=== PATIENT | female | born 1965 | race Caucasian/White ===

== ENCOUNTER → 2019-11-28 00:01 | Outpatient (BNVA) | payer SELFPAY | PROVIDERS: Family Provider Nurse Practitioner Family; PCP Nurse Practitioner Family; Visit Provider Nurse Practitioner Family | DX: S62.633A Displaced fracture of distal phalanx of left middle finger, initial encounter for closed fracture (principal); X58.XXXA Exposure to other specified factors, initial encounter | CPT/HCPCS: 73130 ==

== ENCOUNTER → 2020-04-11 12:03 | Outpatient (BNVA) | payer SELFPAY | PROVIDERS: Family Provider Nurse Practitioner Family; PCP Nurse Practitioner Family; Visit Provider Family Medicine | DX: I10 Essential (primary) hypertension (principal); M19.049 Primary osteoarthritis, unspecified hand; J30.2 Other seasonal allergic rhinitis | CPT/HCPCS: 80053; 80061 ==

== ENCOUNTER → 2021-03-23 11:43 | Outpatient (BNVA) | payer SELFPAY | PROVIDERS: Family Provider Nurse Practitioner Family; PCP Nurse Practitioner Family; Visit Provider Family Medicine | DX: I10 Essential (primary) hypertension (principal); B35.1 Tinea unguium; R91.1 Solitary pulmonary nodule; M62.830 Muscle spasm of back; J30.2 Other seasonal allergic rhinitis; M19.011 Primary osteoarthritis, right shoulder; L85.3 Xerosis cutis; M19.049 Primary osteoarthritis, unspecified hand; S46.811A Strain of other muscles, fascia and tendons at shoulder and upper arm level, right arm, initial encounter; X58.XXXA Exposure to other specified factors, initial encounter | CPT/HCPCS: 80053; 80061 ==

== ENCOUNTER → 2021-04-25 14:37 | Outpatient (BNVA) | payer SELFPAY | PROVIDERS: Family Provider Nurse Practitioner Family; PCP Nurse Practitioner Family; Visit Provider Family Medicine | DX: R74.8 Abnormal levels of other serum enzymes (principal) | CPT/HCPCS: 80053; 86706; 86803; 87340; 87522; 87806 ==

== ENCOUNTER → 2021-09-12 12:27 | Outpatient (BNVA) | payer SELFPAY | PROVIDERS: Family Provider Nurse Practitioner Family; PCP Nurse Practitioner Family; Visit Provider Family Medicine | DX: L98.9 Disorder of the skin and subcutaneous tissue, unspecified (principal) | CPT/HCPCS: 88304 ==

== ENCOUNTER → 2022-02-26 11:14 | Outpatient (BNVA) | payer SELFPAY | PROVIDERS: Family Provider Nurse Practitioner Family; PCP Family Medicine; Visit Provider Nurse Practitioner Family | DX: R68.89 Other general symptoms and signs (principal) | CPT/HCPCS: 87804 ==

== ENCOUNTER → 2022-07-03 14:08 | Outpatient (BNVA) | payer SELFPAY | PROVIDERS: Family Provider Nurse Practitioner Family; PCP Family Medicine; Visit Provider Family Medicine | DX: I10 Essential (primary) hypertension (principal); Z13.220 Encounter for screening for lipoid disorders; Z13.6 Encounter for screening for cardiovascular disorders; B18.2 Chronic viral hepatitis C; L57.0 Actinic keratosis; J30.2 Other seasonal allergic rhinitis; M19.011 Primary osteoarthritis, right shoulder; R74.8 Abnormal levels of other serum enzymes | CPT/HCPCS: 80053; 80061; 83735 ==

== ENCOUNTER 2022-09-04 19:53 | Emergency (ER) | payer SELFPAY ==
[2022-09-04 19:59] VITALS: PULSE 75; RESP 18; TEMP 36.8; O2SAT 98; BMI 25.9
[2022-09-04 20:06] VITALS: BP 156/87
--- NOTE | 2022-09-04 20:15 | ECG_ITS ---
[facility] Test Date: 2022-09-04 Pat Name: Kriss Mccann Department: Room: Gender: Female Riveter Hand: : 1965 Requested By: Mary Ellen Suresh Order Number: [id number] Alysa MD: [place] River M.D. Measurements Intervals [place] Rate: 66 P: 48 AR: 144 QRS: 66 QRSD: 82 T: 60 QT: 391 QTc: 411 Interpretive Statements SINUS RHYTHM No previous ECG available for comparison Electronically Signed On 09-05-2022 8:24:26 CDT by Quincy River M.D. [id number]
[2022-09-04 20:23] LABS: Basophils % 0.6 %; Eosinophils # 0.1 10^3/uL (0.0-0.8); Hematocrit 44.7 % (37.0-47.0); Hemoglobin 15.9 g/dL (11.5-15.3); Lymphocytes # 2.9 10^3/uL (0.8-4.8); Mean Corpuscular HGB Conc 35.6 g/dL (30.0-36.0); Mean Corpuscular Hemoglobin 33.3 pg (28.0-34.0); Mean Corpuscular Volume 93.5 fl (81-99); Mean Platelet Volume 11.8 fL (7.4-10.4); Monocytes # 0.7 10^3/uL (0.2-0.9); Monocytes % 10.1 %; Neutrophils # 3.28 10^3/uL (1.8-7.7); Neutrophils % 45.9 %; Nucleated Red Blood Cells % 0 %; Platelet Count 84 10^3/cmm (130-400); Red Blood Count 4.78 10^6/uL (4.1-5.3); Red Cell Distribution Width 13.2 % (12.1-15.1); White Blood Count 7.1 10^3/uL (4.0-10.0)
[2022-09-04] MEDS: pantoprazole 40 mg SDV 80 MG IVP (20:30)
[2022-09-04] MEDS: sodium chloride 0.9% 500 ML IV (20:31)
[2022-09-04] MEDS: ondansetron 2 mg/ML SDV 2 mL 4 MG IVP (20:31)
[2022-09-04 20:35] LABS: Alanine Aminotransferase 53 U/L (0-33); Albumin Level 3.6 g/dL (3.5-5.2); Alkaline Phosphatase 148 U/L (35-105); Aspartate Amino Transferase 75 U/L (0-32); Blood Urea Nitrogen 15 mg/dL (6-20); Calcium 9.2 mg/dL (8.5-10.5); Carbon Dioxide 27 mmol/L (22-29); Chloride 102 mmol/L (98-107); Glomerular Filtration Rate 103.8 mL/min (90-130); Glucose 89 mg/dL (65-115); Lipase 18 U/L (13-60); Osmolality Calculated 288 mOsm/kg (285-295); Sodium 139 mmol/L (136-145); Total Bilirubin 0.4 mg/dL (0.15-1.2); Total Protein 7.6 g/dL (6.6-8.7)
[2022-09-04 20:42] LABS: Add Urine Microscopic? NO; Charge for UA Resulting for Rev
--- NOTE | 2022-09-04 20:42 | W.ED.GENADLT ---
HPI - General Adult General: Chief complaint: Nausea/Vomiting/Diarrhea Stated complaint: VOMITING BLOOD Time Seen by Provider: 09/04/22 20:15 History of Present Illness: Patient is a 57-year-old female with a history of chronic aspirin use who presents the emergency room with concerns of spitting blood. Patient tells me that this all started around 4 hours ago when she was at home. Initially patient reports coughing up blood then reports vomiting blood and now reports sensation of blood dripping in the back of her throat and and throwing up blood. Patient denies any anticoagulation history. Patient denies any melena/hematochezia or abdominal pain. Patient's no prior history of GI bleed. Denies nausea/vomiting, fever/chill, chest pain, shortness of breath, abdominal pain, dysuria/hematuria/polyuria, or diarrhea. Onset:4 hrs ago Duration:4 hrs Location:home Severity:moderate Associated symptoms: Deny chest pain, dyspnea, nausea, rash, palpitations or vomiting Review of Systems Const: Denies: fever(s) or chills Eyes: Denies: change in vision ENMT: Reports: other (+sensation of postnasal drip); Denies: mouth pain Card: Denies: chest pain or palpitations Resp: Denies: dyspnea or non-productive cough GI: Denies: abdominal pain, nausea, vomiting or diarrhea : Denies: dysuria Musc: Denies: extremity pain Skin/Breast: Denies: rash or new lesions Neuro: Denies: weakness in extremities Psych: Reports: other (Normal mood) Levi/Lymph: Denies: easy bruising PFSH ED PFSH: Medical History delivery delivered 2 Elevated liver enzymes Hand arthritis Hypertension Nodule of lower lobe of right lung Pruritic disorder Family History Father Heart attack Social History Smoking and tobacco status: current every day smoker cigarettes Packs smoked per day: 0.5 Years cigarettes smoked: 40 Quit status (tobacco): has tried quititng Second hand smoke exposure: Yes Alcohol intake: former Lives independently: Yes Household members: none Housing: House Marital status: / Number of children: 2 Number of grandchildren: 2 Current occupation: grain elevator worker Pets and animals: Yes Physical Exam Const: COMMON NORMALS: alert HENMT: COMMON NORMALS: atraumatic HEAD & SCALP: atraumatic MOUTH: moist mucous membranes not abnormal OTHER: + No signs of erythema, trauma, injury, or bleeding in the posterior oropharynx Eye: COMMON NORMALS: EOMs intact bilaterally and conjunctivae normal CONJUNCTIVA: Yes conjunctivae normal Neck/C-Spine: COMMON NORMALS: full ROM and supple Resp: COMMON NORMALS: normal respiratory effort and clear to auscultation bilaterally AUSCULTATION: clear to auscultation bilaterally Cardio: COMMON NORMALS: regular rate RATE: regular rate GI: COMMON NORMALS: Soft to palpation and non-tender PALPATION: Yes Soft to palpation Extremity: COMMON NORMALS: full ROM Neuro: SENSORIUM/ORIENTATION: Yes alert MOTOR EXAM: No Abnormal motor strength present and Other motor observations present (no focal motor deficits) Psych: COMMON NORMALS: speech normal SPEECH: Yes normal speech MOOD & AFFECT: Yes euthymic mood Course Vital Signs: Vital signs: Vital Signs Temperature 98.3 F 09/04/22 19:59 Pulse Rate 65 09/04/22 21:06 Respiratory Rate 16 09/04/22 21:06 Blood Pressure 131/76 09/04/22 21:06 Pulse Oximetry 96 09/04/22 21:06 [facility] - General Adult Medical Decision Making Patient is a 57-year-old female with a history of chronic aspirin use who presents the emergency room with concerns of spitting blood. Patient is hemodynamically stable. Patient has had intermittent phlegm with blood. Posterior pharyngeal exam did not show any signs of oral airway compromise. There is no signs of active extravasation or bleeding. Straight chest appears to be clear.) Time it is unclear what is the source of this mild ooze suspect that it may be from posterior oropharynx. Patient is hemodynamically stable. At present time, I have instructed patient to no longer take aspirin 325 mg twice daily. Patient instructed follow-up and reassess tomorrow to repeat blood work to ensure that her hemoglobin does not further decrease. Patient verbalized understanding of everything discussed. The present, not suspect acute GI bleed or massive hemopytosis the fact patient continues to be hemodynamically stable, is phonating okay and has reassuring hemoglobin today. Disposition: Discharge. Patient counseled regarding diagnostic impression, treatment plan. Patient given ED strict return precautions to return for continuation, worsening, or development of new symptoms. Instructed to f/u w/ PCP regarding symptoms today. Patient verbalized understanding. Lab Data : 09/04/22 20:02 09/04/22 20:02 Radiology Impressions Chest X-Ray 09/04/22 20:48 IMPRESSION: No acute findings. Laboratory Results WBC 7.1 10^3/uL (4.0-10.0) 09/04/22 20: RBC 4.78 10^6/uL (4.1-5.3) 09/04/22 20: Hgb 15.9 g/dL (11.5-15.3) H 09/04/22 20: Hct 44.7 % (37.0-47.0) 09/04/22 20: MCV 93.5 fl (81-99) 09/04/22 20: MCH 33.3 pg (28.0-34.0) 09/04/22 20: MCHC 35.6 g/dL (30.0-36.0) 09/04/22 20: RDW 13.2 % (12.1-15.1) 09/04/22 20: Plt Count 84 10^3/cmm (130-400) L 09/04/22 20: MPV 11.8 fL (7.4-10.4) H 09/04/22 20: Neut % (Auto) 45.9 % 09/04/22 20: Lymph % (Auto) 41.0 % 09/04/22 20: Sandoval % (Auto) 10.1 % 09/04/22 20: Eos % (Auto) 2.0 % 09/04/22 20: Baso % (Auto) 0.6 % 09/04/22 20: Neut # (Auto) 3.28 10^3/uL (1.8-7.7) 09/04/22 20: Lymph # (Auto) 2.9 10^3/uL (0.8-4.8) 09/04/22 20: Sandoval # (Auto) 0.7 10^3/uL (0.2-0.9) 09/04/22 20:02 Eos # (Auto) 0.1 10^3/uL (0.0-0.8) 09/04/22 20:02 Baso # (Auto) 0.0 10^3/uL (0.0-0.1) 09/04/22 20:02 Nucleated RBC % (auto) 0 % 09/04/22 20: Nucleated RBCs # 0.0 /100WBC 09/04/22 20:02 Sodium 139 mmol/L (136-145) 09/04/22 20: Potassium 4.0 mmol/L (3.5-5.1) 09/04/22 20: Chloride 102 mmol/L (98-107) 09/04/22 20: Carbon Dioxide 27 mmol/L (22-29) 09/04/22 20: Anion Gap 14.0 (5-19) 09/04/22 20: BUN 15 mg/dL (6-20) 09/04/22 20: Creatinine 0.6 mg/dL (0.5-0.9) 09/04/22 20: GFR Calculation 103.8 mL/min (90-130) 09/04/22 20: Glucose 89 mg/dL (65-115) 09/04/22 20: Calculated Osmolality 288 mOsm/kg (285-295) 09/04/22 20: Calcium 9.2 mg/dL (8.5-10.5) 09/04/22 20: Total Bilirubin 0.4 mg/dL (0.15-1.2) 09/04/22 20: AST 75 U/L (0-32) H 09/04/22 20: ALT 53 U/L (0-33) H 09/04/22 20:02 Alkaline Phosphatase 148 U/L (35-105) H 09/04/22 20:02 Total Protein 7.6 g/dL (6.6-8.7) 09/04/22 20: Albumin 3.6 g/dL (3.5-5.2) 09/04/22 20: Globulin 4.0 g/dL (1.3-4.6) 09/04/22 20: Lipase 18 U/L (13-60) 09/04/22 20: Urine Color Yellow (Yellow) 09/04/22 20:36 Urine Appearance Clear (CLEAR) 09/04/22 20:36 Urine pH 7 (5-7) 09/04/22 20:36 Ur Specific [place] 1.010 (1.005-1.030) 09/04/22 20:36 Urine Protein Neg (Negative) 09/04/22 20:36 Urine Glucose (UA) Norm (Normal) 09/04/22 20:36 Urine Ketones Negative (Negative) 09/04/22 20:36 Urine Blood Neg (Negative) 09/04/22 20:36 Urine Nitrate Negative (Negative) 09/04/22 20:36 Urine Bilirubin Neg (Negative) 09/04/22 20:36 Urine Urobilinogen Norm mg/dL (Negative) 09/04/22 20:36 Ur Leukocyte Esterase Negative (Negative) 09/04/22 20:36 Imaging Data Other Imaging: Radiologist's impression: [place] [address] XRay Report Signed Patient: Kriss Mccann Unit #: [id number] : 1965 Age/Sex: 57 / F ADM Date: 09/04/22 Loc: ER Room/Bed: Attending Dr: Ordering Provider/Ordering MD: Mary Ellen Suresh MD Date of Service: 09/04/22 Procedure(s): XR chest 1V portable [id number] Accession Number(s): [id number] Report Number: [id number] PROCEDURE INFORMATION: Exam: XR Chest Exam date and time: 09/04/2022 8:53 PM Age: 57 years old Clinical indication: Other: Coughing up blood TECHNIQUE: Imaging protocol: Radiologic exam of the chest. Views: 1 view. COMPARISON: CT abdomen pelvis w con* [id number] 10/11/2015 12:17 PM FINDINGS: Lungs: Unremarkable. No consolidation. Pleural spaces: Unremarkable. No pleural effusion. No pneumothorax. Heart/Mediastinum: Unremarkable. No cardiomegaly. Bones/joints: Unremarkable. XR/XR chest 1V portable [id number] IMPRESSION: No acute findings. ? Dictated By: Rashaad Au DO Signed By: Rashaad Au DO Signed Date/Time: 09/04/222113 DD/ 52 Discharge Plan Discharge Patient Disposition: Home Clinical Impression: Blood-streaked sputum Condition: Stable Prescriptions: No Action cyclobenzaprine 5 mg tablet 10 mg PO TID MDD 6 tabs PRN (Reason: muscle spasm) Qty: 90 3RF Rx Instructions: 1 or 2 tabs as needed hydroxyzine HCl 10 mg tablet 20 mg PO .at bedtime 30 Days Qty: 30 2RF hydrochlorothiazide 25 mg tablet 25 mg PO DAILY 90 Days Qty: 90 3RF fluticasone propionate [Flonase Allergy Relief] 50 mcg/actuation spray,suspension 1 spray intranasal DAILY Qty: 16 11RF Rx Instructions: administer into each nostril sofosbuvir-velpatasvir [Epclusa] 400-100 mg tablet 1 tab PO DAILY 28 Days Qty: 28 2RF omeprazole 20 mg capsule,delayed release(DR/EC) 20 mg PO DAILY Qty: 30 2RF Discharge Orders: Discharge ED (Routine); Ordered 09/04/22 Ordered By: Mary Ellen Suresh Referrals: Yazmin Wray MD [Primary Care Provider] - Discharge Diet: Advance as tolerated Discharge Activity: Increase activity as tolerated Activity Restrictions/Additional Instructions: Come back if you have any new or concerning issues. Follow-up with your primary care provider for reassessment of your symptoms tomorrow. Come back to the emergency room if notice significant increase in blood in your phlegm cough or vomit. Come back if there is any new external complaints. Coding Level of Care Code ED Manager Risk Management for Eusebio Fwd Exam Comprehensive
[2022-09-04 20:44] LABS: Bilirubin Urine Neg (Negative); Blood Urine Neg (Negative); Glucose Urine UA Norm (Normal); Ketones Urine Negative (Negative); Leukocyte Esterase Urine Negative (Negative); Nitrate Urine Negative (Negative); Protein Urine Neg (Negative); Urine Appearance Clear (CLEAR); Urine Color Yellow (Yellow); Urobilinogen Urine Norm (Negative); pH Urine 7 (5-7)
--- NOTE | 2022-09-04 20:48 | XRR_ITS ---
PROCEDURE INFORMATION: Exam: XR Chest Exam date and time: 09/04/2022 8:53 PM Age: 57 years old Clinical indication: Other: Coughing up blood TECHNIQUE: Imaging protocol: Radiologic exam of the chest. Views: 1 view. COMPARISON: CT abdomen pelvis w con* [id number] 10/11/2015 12:17 PM FINDINGS: Lungs: Unremarkable. No consolidation. Pleural spaces: Unremarkable. No pleural effusion. No pneumothorax. Heart/Mediastinum: Unremarkable. No cardiomegaly. Bones/joints: Unremarkable. XR/XR chest 1V portable [id number] IMPRESSION: No acute findings.
[2022-09-04 21:06] VITALS: BP 131/76; PULSE 65; RESP 16; O2SAT 96
[2022-09-04 22:00] VITALS: BP 122/70; PULSE 74; RESP 18; O2SAT 94
[2022-09-04 22:51] VITALS: BP 118/76; PULSE 68; RESP 16; O2SAT 95
== END 2022-09-04 22:54 | disposition home or self-care (01) ==
PROVIDERS: Emergency Provider Emergency Medicine; PCP Family Medicine
DX: R04.2 Hemoptysis (principal); I10 Essential (primary) hypertension; F17.210 Nicotine dependence, cigarettes, uncomplicated
CPT/HCPCS: 71045; 80053; 81003; 83690; 85025; 93005; 96374; 96375; 99285; C9113; J2405; J7040

== ENCOUNTER → 2022-12-11 13:27 | Outpatient (BNVA) | payer SELFPAY | PROVIDERS: PCP Family Medicine; Visit Provider Family Medicine | DX: I10 Essential (primary) hypertension (principal); L29.9 Pruritus, unspecified; M19.011 Primary osteoarthritis, right shoulder; Z13.1 Encounter for screening for diabetes mellitus; E11.9 Type 2 diabetes mellitus without complications; K21.9 Gastro-esophageal reflux disease without esophagitis; R11.0 Nausea; K29.01 Acute gastritis with bleeding; B18.2 Chronic viral hepatitis C | CPT/HCPCS: 83036 ==

== ENCOUNTER → 2023-03-05 14:34 | Outpatient (BNVA) | payer OTHER, SELFPAY | PROVIDERS: PCP Family Medicine; Visit Provider Family Medicine | DX: B18.2 Chronic viral hepatitis C (principal) | CPT/HCPCS: 80053; 87522 ==

== ENCOUNTER → 2023-03-06 10:56 | Outpatient (BNVA) | payer OTHER, SELFPAY | PROVIDERS: PCP Family Medicine; Visit Provider Family Medicine | DX: M54.12 Radiculopathy, cervical region (principal) | CPT/HCPCS: 72040 ==

== ENCOUNTER 2023-04-15 06:49 | Outpatient (CLI) | payer OTHER, SELFPAY ==
--- NOTE | 2023-04-15 07:30 | USCV_ITS ---
Kriss Mccann Age: 58 Gender: F : 1965 Exam Date: 04/15/2023 07:17 Ordering Phys: Yazmin Wray MD Technologist: HIREN [place] [facility] [place] EVAL FOR STENOSIS Risk Factors: Previous Vascular Surgery: Right Brachial BP: / Left Brachial BP: / Right Left Velocity (cm/s) Spectral Plaque Velocity (cm/s) Spectral Plaque Syst/Diast Broadening Syst/Diast Broadening 104.70/18.70 Prox CCA 114.70/ 22.10 81.80/ 20.70 Mid CCA 84.90 / 23.20 82.70/ 24.30 Distal CCA 72.80 / 19.80 94.00/ 24.80 Prox ICA 73.60 / 22.30 80.80/ 26.70 Mid ICA 69.70 / 21.00 80.90/ 24.60 Distal ICA 45.00 / 16.60 89.70 ECA 62.90 0.90 ICA/CCA 0.64 Antegrade Vertebral Antegrade 52.00/ 17.90 cm/s 43.30/ 12.20 cm/s Tri Subclavian Tri 90.90 99.00 CONCLUSIONS Right ICA stenosis <50%. Left ICA stenosis <50%. Complex 7mm right thyroid nodule partially visualized. Recommend f/u thyroid ultrasound Normal antegrade Doppler flow noted in the right vertebral artery. Normal antegrade Doppler flow noted in the left vertebral artery. Clinton Raygoza MD (Electronically Signed) Final Date: 15 Apr 2023 12:48 S
== END 2023-04-15 06:50 | disposition home or self-care (01) ==
LOC: RAD 06:54
PROVIDERS: PCP Family Medicine; Visit Provider Family Medicine
DX: I65.29 Occlusion and stenosis of unspecified carotid artery (principal)
CPT/HCPCS: 93880

== ENCOUNTER 2023-04-24 13:59 | Outpatient (CLI) | payer OTHER, SELFPAY ==
--- NOTE | 2023-04-24 15:00 | US_ITS ---
WS: [id number] THYROID ULTRASOUND HISTORY: E04.1 - Nontoxic single thyroid nodule COMPARISON: None available. Right lobe: 1.8 cm x 1.5 cm x 5.1 cm (w x ap x l). Volume: 7.1 cm3. Normal size gland. Cystic mass with intramural debris or nodule superior pole measures 7 x 7 x 10 mm. The nodule within the cystic mass measures 3 x 2 x 4 mm. No increased vascularity. This may be debri s within the nodule. Otherwise the gland demonstrates very mild coarsened echotexture. Left lobe: 1.4 cm x 1.2 cm x 3.7 cm (w x ap x l). Volume: 3.1 cm3. Normal size gland with coarse echotexture. No increased vascularity. There are a few small colloid cy sts. Isthmus: 0.2 cm. US/US thyroid [id number] IMPRESSION: 1. Small cyst with mural nodule or intracystic debris in the superior pole RIG HT thyroid. Cystic nodule measures 7 x 7 x 10 mm. No increased vascularity of t he nodular component. Suggest one-year ultrasound evaluation. 2. Otherwise mild heterogeneity throughout both lobes but no solid masses.
== END 2023-04-24 14:00 | disposition home or self-care (01) ==
LOC: RAD 14:02
PROVIDERS: PCP Family Medicine; Visit Provider Family Medicine
DX: E04.1 Nontoxic single thyroid nodule (principal)
CPT/HCPCS: 76536

== ENCOUNTER → 2023-05-07 14:24 | Outpatient (BNVA) | payer OTHER, SELFPAY | PROVIDERS: PCP Family Medicine; Visit Provider Family Medicine | DX: B18.2 Chronic viral hepatitis C (principal) | CPT/HCPCS: 80053; 82977; 85025; 87806; 87902 ==

== ENCOUNTER → 2023-05-15 08:23 | Outpatient (BNVA) | payer OTHER, SELFPAY | PROVIDERS: PCP Family Medicine; Visit Provider Otolaryngology | DX: E04.1 Nontoxic single thyroid nodule (principal) | CPT/HCPCS: 36415; 84439; 84443; 84480; 84481 ==

== ENCOUNTER 2023-05-22 07:05 | Outpatient (CLI) | payer OTHER, SELFPAY ==
--- NOTE | 2023-05-22 07:15 | US_ITS ---
WS: [id number] Exam: [place] liver [id number] Date/Time of Exam: 05/22/2023 7:30 AM Reason For Exam: hep c, transaminitis Comparison 10/11/2015. Heterogeneous echotexture throughout the liver is noted and shows little change since the prior study . There was no sign of intrahepatic ductal dilatation or focal hepatic mass. The liver is not enlarge d and measures 14.13 cm at greatest dimension. There is mild thickening of the gallbladder romero whic h might be seen with chronic gallbladder disease. No sign of acute cholecystitis or cholelithiasis. T he common bile duct is not dilated and measures 4.4 mm at greatest diameter. The IVC shows phasic jaimee w. The abdominal aorta is normal in caliber. Normal-appearing right kidney measures 10.53 x 4.1 x 4 c m. No free fluid or mass the right abdomen. The pancreas is unremarkable as visualized. US/US liver [id number] IMPRESSION: 1. Heterogeneous echotexture noted throughout the liver essentially unchanged s marino the prior study. The liver is mildly lobulated in contour which might be s een with hepatic cirrhosis. No hepatic mass or intrahepatic ductal dilatation. 2. Mild thickening of the gallbladder romero which might be seen with the chroni c gallbladder disease. No sign of acute cholecystitis or cholelithiasis.
== END 2023-05-22 07:06 | disposition home or self-care (01) ==
LOC: RAD 07:11
PROVIDERS: PCP Family Medicine; Visit Provider Family Medicine
DX: B18.2 Chronic viral hepatitis C (principal)
CPT/HCPCS: 76705

== ENCOUNTER → 2023-06-07 12:57 | Outpatient (BNVA) | payer OTHER, SELFPAY | PROVIDERS: PCP Family Medicine; Visit Provider Family Medicine | DX: B18.2 Chronic viral hepatitis C (principal) | CPT/HCPCS: 87522 ==

== ENCOUNTER → 2023-06-11 14:44 | Outpatient (BNVA) | payer OTHER, SELFPAY | PROVIDERS: PCP Family Medicine; Visit Provider Family Medicine | DX: M77.8 Other enthesopathies, not elsewhere classified (principal); M25.511 Pain in right shoulder | CPT/HCPCS: 73030 ==

== ENCOUNTER → 2023-06-26 10:00 | Outpatient (BNVA) | payer OTHER, SELFPAY | PROVIDERS: PCP Family Medicine; Visit Provider Family Medicine | DX: Z12.4 Encounter for screening for malignant neoplasm of cervix (principal) | CPT/HCPCS: 87624 ==

== ENCOUNTER → 2023-07-08 10:18 | Outpatient (BNVA) | payer OTHER, SELFPAY | PROVIDERS: PCP Family Medicine; Visit Provider Family Medicine | DX: I10 Essential (primary) hypertension (principal); B19.20 Unspecified viral hepatitis C without hepatic coma | CPT/HCPCS: 80053; 80061; 85025 ==

== ENCOUNTER 2023-07-12 09:18 | Outpatient (CLI) | payer OTHER, SELFPAY ==
[2023-07-12 10:13] LABS: INR 1.05 (0.8-1.2)
[2023-07-12 11:02] LABS: Hepatitis A Antibody IgM Non-Reactive (Nonreactive); Hepatitis B Core AB, Total Non-Reactive (Nonreactive); Hepatitis B Surface AB < 3.5 (11.5-1000); Hepatitis B Surface Antigen Non-Reactive (Nonreactive)
[2023-07-12 11:24] LABS: Hepatitis C Virus Antibody Reactive (Nonreactive)
[2023-07-16 18:03] LABS: HEP C RNA Viral Load Quant 6.56 Log IU/mL (NOT DETECTED)
== END 2023-07-12 09:19 | disposition home or self-care (01) ==
PROVIDERS: PCP Family Medicine; Visit Provider Student in an Organized Health Care Education/Training Program
DX: B19.20 Unspecified viral hepatitis C without hepatic coma (principal); K74.60 Unspecified cirrhosis of liver
CPT/HCPCS: 36415; 85610; 86705; 86706; 86709; 86803; 87340; 87522

== ENCOUNTER → 2023-08-07 12:18 | Outpatient (BNVA) | payer OTHER, SELFPAY | PROVIDERS: PCP Family Medicine; Visit Provider Obstetrics & Gynecology | DX: R10.2 Pelvic and perineal pain (principal); N85.8 Other specified noninflammatory disorders of uterus | CPT/HCPCS: 76830 ==

== ENCOUNTER 2023-08-14 10:58 | Outpatient (CLI) | payer OTHER, SELFPAY ==
--- NOTE | 2023-08-14 11:19 | MM_ITS ---
WS: [id number] BILATERAL SCREENING DIGITAL TOMOSYNTHESIS MAMMOGRAM WITH CAD HISTORY: Z12.39 - Encounter for other screening for malignant neop... COMPARISON: 02/28/2018 Bilateral CC and MLO views with tomosynthesis and synthetic mammography submitted. Computer aided det ection analyzed. Breast composition: There are scattered areas of fibroglandular density. No suspicious masses, microc alcifications or architectural distortion. Benign calcifications in each breast. IMPRESSION: MM/[place] [id number] BI-RADS: 2-Benign FOLLOW UP: 1 Year Follow-up
== END 2023-08-14 10:59 | disposition home or self-care (01) ==
PROVIDERS: PCP Family Medicine; Visit Provider Obstetrics & Gynecology
DX: Z12.31 Encounter for screening mammogram for malignant neoplasm of breast (principal)
CPT/HCPCS: 77063; 77067

== ENCOUNTER → 2023-08-19 13:10 | Outpatient (BNVA) | payer OTHER, SELFPAY | PROVIDERS: PCP Family Medicine; Visit Provider Obstetrics & Gynecology | DX: Z01.818 Encounter for other preprocedural examination (principal) | CPT/HCPCS: 81025; 88305 ==

== ENCOUNTER → 2023-08-27 08:52 | Outpatient (BNVA) | payer OTHER, SELFPAY | PROVIDERS: PCP Family Medicine; Referring Provider Otolaryngology; Visit Provider Internal Medicine | DX: E04.1 Nontoxic single thyroid nodule (principal); R79.89 Other specified abnormal findings of blood chemistry; I10 Essential (primary) hypertension | CPT/HCPCS: 36415; 83516; 84439; 84443; 84480; 86376; 86800 ==

== ENCOUNTER → 2023-11-27 09:52 | Outpatient (BNVA) | payer OTHER, SELFPAY | PROVIDERS: PCP Family Medicine; Visit Provider Internal Medicine | DX: R94.6 Abnormal results of thyroid function studies (principal) | CPT/HCPCS: 84439; 84443; 84481 ==

== ENCOUNTER → 2024-02-19 13:48 | Outpatient (BNVA) | payer OTHER, SELFPAY | PROVIDERS: PCP Family Medicine; Visit Provider Family Medicine | DX: E03.9 Hypothyroidism, unspecified (principal); E04.1 Nontoxic single thyroid nodule; B18.2 Chronic viral hepatitis C | CPT/HCPCS: 80053; 84439; 84443; 84481; 87522 ==

== ENCOUNTER → 2024-03-25 16:02 | Outpatient (BNVA) | payer OTHER, SELFPAY | PROVIDERS: PCP Family Medicine; Visit Provider Nurse Practitioner Family | DX: S50.01XA Contusion of right elbow, initial encounter (principal); Z32.00 Encounter for pregnancy test, result unknown; X58.XXXA Exposure to other specified factors, initial encounter | CPT/HCPCS: 73080; 81025 ==

== ENCOUNTER → 2024-06-08 09:07 | Outpatient (BNVA) | payer OTHER, SELFPAY | PROVIDERS: PCP Family Medicine; Visit Provider Internal Medicine | DX: E04.1 Nontoxic single thyroid nodule (principal); R79.89 Other specified abnormal findings of blood chemistry; R94.6 Abnormal results of thyroid function studies | CPT/HCPCS: 36415; 84439; 84443; 84481 ==

== ENCOUNTER → 2024-08-18 13:57 | Outpatient (BNVA) | payer OTHER, SELFPAY | PROVIDERS: PCP Family Medicine; Visit Provider Family Medicine | DX: I10 Essential (primary) hypertension (principal); M54.6 Pain in thoracic spine | CPT/HCPCS: 80053; 80061 ==

== ENCOUNTER 2024-11-11 09:37 | Emergency (ER) | payer OTHER, SELFPAY ==
[2024-11-11 10:20] VITALS: BP 119/75; PULSE 52; RESP 16; TEMP 36.7; O2SAT 97; BMI 23.8
--- NOTE | 2024-11-11 10:25 | XR_ITS ---
WS: [id number] WRIST RIGHT TECHNIQUE: 3 views of the right wrist CLINICAL INFORMATION: injury COMPARISON: None. FINDINGS: A tiny bony sliver on the lateral view nonspecific but may represent a tiny displaced triquetral or d orsal hamate carpal bone fracture. Recommend interval follow-up with radiograph or CT. No other visua lized acute fractures. XR/XR wrist RT min 3V* [id number] IMPRESSION: See discussion above
--- NOTE | 2024-11-11 10:36 | ED_ITS ---
HPI - Extremity Problem General: Chief complaint: Extremity Injury, Upper Stated complaint: Right arm injury Time Seen by Provider: 11/11/24 10:05 Source: patient Mode of arrival: ambulatory Limitations: no limitations History of Present Illness: 59-year-old female who states she was ki cked by a cow last night states she has some pain in her right wrist she rates the pain a 5 out of 10 is worse with palpation no obvious deformity denies any other injuries. Associated symptoms: Deny chest pain, fever(s) or rash Related Data Home Medications Medication Instructions Recorded Confirmed aspirin 325 mg tablet 325 mg PO .PRN 03/25/24 11/11/24 nadolol 20 mg tablet 10 mg PO DAILY 04/21/24 11/11/24 Previous Rx's Medication Instructions Recorded albuterol sulfate 90 mcg/actuation 2 puff inhalation QID PRN 08/18/24 aerosol inhaler shortness of breath or wheezing 30 days #18 grams cyclobenzaprine 5 mg tablet 10 mg (2 x 5 mg) PO TID PRN muscle 08/18/24 spasm #90 tabs Allergies Allergy/AdvReac Type Severity Reaction Status Date / Time latex Allergy Intermediate swells body Verified 08/31/24 14:19 Penicillins Allergy Mild blisters/ Verified 08/31/24 14:19 swollen throat Review of Systems Const: Denies: fever(s), chills, body aches or change in appetite ENMT: Denies: throat pain or dental pain Card: Denies: chest pain Resp: Denies: dyspnea GI: Denies: abdominal pain, nausea, vomiting or diarrhea Musc: Denies: neck pain or back pain Skin/Breast: Denies: rash Neuro: Denies: headache(s) PFSH ED PFSH: Medical History History of nonmelanoma skin cancer Pruritic disorder Elevated liver enzymes Nodule of lower lobe of right lung Hand arthritis Hypertension delivery delivered 2 Family History Father Heart attack Mother Colon cancer Uterine cancer Heart disease Hypertension Stroke Brother Heart disease Diabetes Denies family history of Ovarian cancer Hyperlipidemia Breast cancer Thyroid disease Social History Smoking and tobacco/nicotine status: current every day tobacco/nicotine user Physical Exam Const: COMMON NORMALS: no acute distress, patient oriented x3 and healthy appearing HENMT: COMMON NORMALS: normocephalic and atraumatic HEAD & SCALP: normocephalic and atraumatic Neck/C-Spine: COMMON NORMALS: full ROM and supple Chest: COMMONS NORMALS: normal inspection of the chest Resp: COMMON NORMALS: normal respiratory effort Cardio: COMMON NORMALS: regular rate, regular rhythm and No murmurs present (Cardio) RATE: regular rate RHYTHM: regular rhythm Extremity: COMMON NORMALS: full ROM NARRATIVE EXTREMITY EXAM: Tenderness bruising noted to right wrist no obvious deformity Neuro: COMMON NORMALS: patient oriented x3, moves all extremities and no focal motor deficits Psych: COMMON NORMALS: mental status grossly normal, Normal thought process present and cooperative THOUGHT PROCESS: Normal thought process present Skin: COMMON NORMALS: no rashes or lesions noted and no wounds GENERAL SKIN EXAM: no rashes or lesions noted Course Vital Signs: Vital signs: Vital Signs Temperature 98.0 F 11/11/24 10:20 Pulse Rate 54 L 11/11/24 10:55 Respiratory Rate 16 11/11/24 10:20 Blood Pressure 142/80 11/11/24 10:55 Pulse Oximetry 97 11/11/24 10:55 Oxygen Delivery Me thod Room Air 11/11/24 10:55 MDM - Extremity (Nontraumatic) Medical Decision Making Patient presents here with right wrist pain after being kicked in the wrist did speak to radiologist the lateral x-ray shows a possible avulsion that could be a triquetrum fracture we will place her in a sugar-tong splint we will get her follow-up with orthopedics for repeat imaging she understands agrees to plan Medical Records I reviewed the patient's medical records. All radiology interpretation(s) finalized by discharge Discharge Plan Discharge Patient Disposition: Home Clinical Impression: Right wrist injury Condition: Stable Prescriptions: No Action aspirin 325 mg tablet 325 mg PO .PRN nadolol 20 mg tablet 10 mg PO DAILY albuterol sulfate 90 mcg/actuation HFA aerosol inhaler 2 puff inhalation QID PRN (Reason: shortness of breath or wheezing) 30 Days Qty: 18 5RF cyclobenzaprine 5 mg tablet 10 mg PO TID MDD 6 tabs PRN (Reason: muscle spasm) Qty: 90 1RF Rx Instructions: 1 or 2 tabs as needed Discharge Orders: Discharge ED (Routine); Ordered 11/11/24 Ordered By: Panchito Pedroza Referrals: Wellington Browne DO [Physician] - 4-7 days Yazmin Wray MD [Primary Care Provider] - Discharge Diet: Advance as tolerated Discharge Activity: Resume usual activity Patient Instructions: Wrist Injury (ED) Coding Level of Care Code ED Virtual Assistant For Advertisers for Eusebio Lemus
[2024-11-11 10:55] VITALS: BP 142/80; PULSE 54; O2SAT 97
[2024-11-11 11:42] VITALS: BP 161/78; PULSE 56; O2SAT 98
--- NOTE | 2024-11-12 09:32 | DCPLANNER ---
messaged ortho for er f/u
== END 2024-11-11 11:43 | disposition home or self-care (01) ==
PROVIDERS: Emergency Provider Emergency Medicine; PCP Family Medicine
DX: S61.501A Unspecified open wound of right wrist, initial encounter (principal); W55.22XA Struck by cow, initial encounter; I10 Essential (primary) hypertension; Z72.0 Tobacco use
CPT/HCPCS: 29125; 73110; 99283

== ENCOUNTER → 2024-11-17 08:56 | Outpatient (BNVA) | payer OTHER, SELFPAY | PROVIDERS: PCP Family Medicine; Referring Provider Emergency Medicine; Visit Provider Orthopaedic Surgery | DX: S69.91XA Unspecified injury of right wrist, hand and finger(s), initial encounter (principal); X58.XXXA Exposure to other specified factors, initial encounter | CPT/HCPCS: 73110 ==

== ENCOUNTER 2024-11-17 09:35 | Outpatient (CLI) | payer OTHER, SELFPAY | END 2024-11-17 09:36 | disposition home or self-care (01) | LOC: SPT 09:36 | PROVIDERS: PCP Family Medicine; Visit Provider Orthopaedic Surgery | DX: Z46.89 Encounter for fitting and adjustment of other specified devices (principal); Z3A.00 Weeks of gestation of pregnancy not specified; S69.91XD Unspecified injury of right wrist, hand and finger(s), subsequent encounter; X58.XXXD Exposure to other specified factors, subsequent encounter | CPT/HCPCS: 97760; L3908 ==

== ENCOUNTER → 2024-12-17 10:22 | Outpatient (BNVA) | payer OTHER, SELFPAY | PROVIDERS: PCP Family Medicine; Visit Provider Orthopaedic Surgery | DX: S62.101A Fracture of unspecified carpal bone, right wrist, initial encounter for closed fracture; Z09 Encounter for follow-up examination after completed treatment for conditions other than malignant neoplasm; X58.XXXA Exposure to other specified factors, initial encounter | CPT/HCPCS: 73110 ==

== ENCOUNTER 2024-12-31 09:09 | Outpatient (CLI) | payer OTHER, SELFPAY ==
--- NOTE | 2024-12-31 11:00 | MRR_ITS ---
PROCEDURE INFORMATION: Exam: MR Right Upper Extremity Joint Without Contrast; Wrist Exam date and time: 12/31/2024 10:16 AM Age: 59 years old Clinical indication: Injury or trauma; Blunt trauma (contusions or hematomas); Right; Injury details: Kicked by cow, pain on pinky side of wrist; Additional info: Wrist FX TECHNIQUE: Imaging protocol: Magnetic resonance imaging of the right upper extremity without contrast. Exam focused on the wrist. COMPARISON: CR XR wrist RT min 3V* [id number] 11/17/2024 8:57 AM FINDINGS: Bones/joints: Normal osseous alignment. Mild bone marrow edema in the ulnar styloid process is noted with no evidence of an acute fracture. Moderate joint space narrowing between the distal radius and ulna is present, with mild degenerative appearing distal ulnar subcortical cystic changes, and mild osteophyte formation and a small joint effusion. Mild joint space narrowing and osteophyte formation at the 1st carpometacarpal joint is also present. Slight thickening of the shaft of the 5th metacarpal appears benign and similar to the prior radiographs, likely related to an old healed fracture. Mild dorsal bossing is noted at the base of the 2nd metacarpal and the adjacent trapezoid. Small pisotriquetral joint effusion. Serpiginous areas of T2 hyperintensity in the capitate compatible with benign developmental nutrient foramina. Small joint effusions are identified at the visualized 1st, 4th and 5th metacarpal phalangeal joints. Scapholunate ligament: Unremarkable. No tear. Lunotriquetral ligament: Unremarkable. No tear. Triangular fibrocartilage complex: Unremarkable. No tear. Flexor compartment tendons: Unremarkable. No tear. Extensor compartment tendons: Mild abnormal fluid in the extensor carpi ulnaris tendon sheath is present. Edema is noted in the region of the sub sheath at the level of the distal ulna, without evidence of a tear of the subsheath. Soft tissues: [id number] subcutaneous edema is noted overlying the medial and dorsal aspect of the distal ulna. MR/MR wrist RT wo con* [id number] IMPRESSION: 1. Subcutaneous edema along the lateral and dorsal aspect of the distal ulna is noted, suggestive of contusion given the history of trauma. 2. Mild extensor carpi ulnaris tenosynovitis is noted. Edema in the region of the tendinous sub sheath is noted, without evidence of subsheath tear. 3. Primary osteoarthritic changes of the distal radioulnar joint and 1st carpometacarpal joint. 4. Small distal radioulnar joint, pisotriquetral joint and 1st, 4th and 5th metacarpophalangeal joint effusions.
== END 2024-12-31 09:10 | disposition home or self-care (01) ==
LOC: RAD 09:12
PROVIDERS: PCP Family Medicine; Visit Provider Orthopaedic Surgery
DX: S62.101A Fracture of unspecified carpal bone, right wrist, initial encounter for closed fracture (principal); R94.6 Abnormal results of thyroid function studies; W55.22XA Struck by cow, initial encounter; R93.6 Abnormal findings on diagnostic imaging of limbs; M65.88 Other synovitis and tenosynovitis, other site; M19.031 Primary osteoarthritis, right wrist; M25.431 Effusion, right wrist; M25.731 Osteophyte, right wrist
CPT/HCPCS: 36415; 73221; 84439; 84443; 84481

== ENCOUNTER 2025-02-19 09:09 | Outpatient (CLI) | payer OTHER, SELFPAY ==
--- NOTE | 2025-02-19 10:40 | MM_ITS ---
WS: [id number] BILATERAL SCREENING DIGITAL TOMOSYNTHESIS MAMMOGRAM WITH CAD HISTORY: Z12.39 - Encounter for other screening for malignant neop... COMPARISON: 08/14/2023, 02/28/2018 Bilateral CC and MLO views with tomosynthesis and synthetic mammography submitted. Computer aided detection analyzed. Breast composition: There are scattered areas of fibroglandular density. No suspicious masses, microcalcifications or architectural distortion. Benign calcifications. MM/MM scr BI tomosynthesis [id number] IMPRESSION: BI-RADS: 2 - Benign. FOLLOW UP: 1 Year Follow-up
== END 2025-02-19 09:10 | disposition home or self-care (01) ==
PROVIDERS: PCP Family Medicine; Visit Provider Family Medicine
DX: Z12.31 Encounter for screening mammogram for malignant neoplasm of breast (principal); R92.323 Mammographic fibroglandular density, bilateral breasts; R92.1 Mammographic calcification found on diagnostic imaging of breast
CPT/HCPCS: 77063; 77067

== ENCOUNTER → 2025-03-18 14:48 | Outpatient (BNVA) | payer OTHER, SELFPAY | PROVIDERS: PCP Family Medicine; Visit Provider Obstetrics & Gynecology | DX: Z01.419 Encounter for gynecological examination (general) (routine) without abnormal findings (principal) | CPT/HCPCS: 87624 ==

== ENCOUNTER 2025-03-22 00:43 | Emergency (ER) | payer OTHER, SELFPAY ==
[2025-03-22 01:17] VITALS: BP 152/89; PULSE 83; RESP 14; TEMP 35.8; O2SAT 95
== END 2025-03-22 02:04 | disposition left against medical advice (07) ==
PROVIDERS: Emergency Provider Family Medicine; PCP Family Medicine
DX: Z01.89 Encounter for other specified special examinations (principal); Z53.21 Procedure and treatment not carried out due to patient leaving prior to being seen by health care provider
CPT/HCPCS: 81000; 87086

== ENCOUNTER → 2025-03-29 10:50 | Outpatient (BNVA) | payer OTHER, SELFPAY | PROVIDERS: PCP Family Medicine; Visit Provider Family Medicine | DX: R31.9 Hematuria, unspecified (principal) | CPT/HCPCS: 81000; 87086 ==

== ENCOUNTER → 2025-05-13 14:17 | Outpatient (BNVA) | payer OTHER, SELFPAY | PROVIDERS: PCP Family Medicine; Referring Provider Family Medicine; Visit Provider Family Medicine | DX: M54.50 Low back pain, unspecified (principal) | CPT/HCPCS: 72100 ==

== ENCOUNTER 2025-05-25 05:00 | Outpatient (RCR) | payer OTHER, SELFPAY | END 2025-06-24 23:59 | disposition home or self-care (01) | LOC: MPT 05:00 | PROVIDERS: PCP Family Medicine; Visit Provider Family Medicine | DX: M54.59 Other low back pain (principal) | CPT/HCPCS: 97162 ==

== ENCOUNTER → 2025-06-30 09:08 | Outpatient (BNVA) | payer OTHER, SELFPAY | PROVIDERS: PCP Family Medicine; Visit Provider Internal Medicine | DX: R94.6 Abnormal results of thyroid function studies (principal); R79.89 Other specified abnormal findings of blood chemistry; E04.1 Nontoxic single thyroid nodule | CPT/HCPCS: 36415; 84439; 84443; 84481 ==

== ENCOUNTER 2025-07-09 09:31 | Outpatient (CLI) | payer OTHER, SELFPAY ==
--- NOTE | 2025-07-09 10:30 | US_ITS ---
WS: [id number] ULTRASOUND THYROID TECHNIQUE: Ultrasound of the thyroid. CLINICAL INFORMATION: Thyroid Nodule COMPARISON: 2022 FINDINGS: Thyroid: Right and left thyroid lobes are normal in size and echotexture. Right thyroid lobe: 4.2 cm x 1.2 cm x 1.3 cm Complex cystic lesion RIGHT mid thyroid measuring 10 x 6 x 7 mm with a small amount of debris and peripheral nodularity. This is unchanged in appearance compared to previous. Left thyroid lobe: 4.0 cm x 1.3 cm x 0.9 cm. Isthmus: 0.2 mm. Cervical lymphadenopathy: None. US/US thyroid [id number] IMPRESSION: 1. No changes compared to previous 2. Stable complex cystic lesion RIGHT mid thyroid with a small amount of inter nal debris and peripheral nodularity. Recommend 12-month follow-up. 3. No new nodules.
== END 2025-07-09 09:32 | disposition home or self-care (01) ==
LOC: RAD 09:33
PROVIDERS: PCP Family Medicine; Visit Provider Internal Medicine
DX: E04.1 Nontoxic single thyroid nodule (principal)
CPT/HCPCS: 76536